=== PATIENT | male | born 1980 | race Two or more races ===

== ENCOUNTER 2020-03-17 23:00 | Emergency (ER) | payer OTHER, SELFPAY ==
[2020-03-17 23:01] VITALS: BP 163/111; PULSE 86; RESP 17; TEMP 36.4; O2SAT 100
--- NOTE | 2020-03-17 23:17 | ED.EYEPROB ---
HPI - Eye Problem General Chief complaint: Eye Problems Stated complaint: RIGHT EYE COMPLAINT Time Seen by Provider: 03/17/20 23:04 History of Present Illness HPI Narrative: Patient is a 39-year-old male who presents ER with right eye pain. Patient reports he was climbing a tree did go bow hunting when he felt something fall into his eye. He slowly developed discomfort over the rest of the day. Tonight it became very severe where he felt like he needed to come be evaluated. Reports his eyes red. He has a sensation that something may be stuck under his upper eyelid. Has blurring of the vision. Tried some pinkeye medication with no relief. Related Data Allergies Allergy/AdvReac Type Severity Reaction Status Date / Time NKDA Allergy Mild Unknown Uncoded 03/17/20 23:01 Review of Systems Eyes: Eyes: Reports change in vision, Denies eye discharge, Denies floaters, Reports irritation and Reports photophobia PMFSH Past Medical History Medical History (Updated 03/17/20 @ 23:22 by Oswaldo Mitchell MD) Healthy adult male Surgical History Surgical History (Updated 03/17/20 @ 23:19 by Oswaldo Mitchell MD) No history of previous surgery Family History Family History (Updated 05/08/16 @ 10:16 by DOCTOR UNKNOWN) Mother Family history of diabetes mellitus in first degree relative Family history of type 2 diabetes mellitus Grandparent Family history of type 2 diabetes mellitus Social History Social History Smoking status: Light tobacco smoker Smoking end date: 06/17/11 Alcohol intake: current Gender identity (if verbalized by the patient): Male Exam Narrative: Exam Narrative: GENERAL: Well-appearing, well-nourished, and in no acute distress. HEAD: Normocephalic, atraumatic. EYES: PERRL and EOMI. right eye with scleral injection. When viewed with magnification fluorescein staining wears a corneal abrasion over the mid to lower aspect of the cornea at the 7 o'clock position. The upper and lower lids of the right eye are edematous. No foreign body did divide with lid eversion. NEURO: Alert and oriented x3. PSYCH: Normal mood and affect. Course Vital Signs Vital signs: Vital Signs Temperature 97.6 F 03/17/20 23:01 Pulse Rate 86 03/17/20 23:01 Respiratory Rate 17 03/17/20 23:01 Blood Pressure 163/111 H 03/17/20 23:01 Pulse Oximetry 100 03/17/20 23:01 Temperature 97.6 F 03/17/20 23: Pulse Rate 86 03/17/20 23: Respiratory Rate 17 03/17/20 23:01 Blood Pressure 163/111 H 03/17/20 23:01 Pulse Oximetry 100 03/17/20 23:01 Discharge Plan Discharge Clinical Impression: Corneal abrasion Patient Disposition: Home, Self-Care Condition: Stable Instructions: Corneal Abrasion (ED) Additional Instructions: Return the ER if you have worsening pain in your eye, you cannot see, you have additional concerns. It would be neely to follow-up with an eye doctor/duty engineer for further evaluation. Prescriptions: New erythromycin 5 mg/gram (0.5 %) ointment 1 applic RIGHT EYE ONCE Qty: 3.5 RF: 0 hydrocodone-acetaminophen 5-325 mg tablet 1 tablet PO Q6H PRN (Reason: pain) Qty: 10 RF: 0 Follow-up/Referrals: Bruno Trent MD [Primary Care Provider] - Stand Alone Forms: Work/School Release IP
[2020-03-17] MEDS: HYDROcodone/acetaminophen (*CRX) 5-325 MG TABLET 1 TAB PO (23:29)
--- NOTE | 2020-03-17 23:31 | PC.NURSE ---
ice pack provided to pt.
[2020-03-18 00:34] VITALS: PULSE 78; RESP 18; O2SAT 99
== END 2020-03-18 00:35 | disposition home or self-care (01) ==
PROVIDERS: Emergency Provider Emergency Medicine; PCP Family Medicine
DX: S05.01XA Injury of conjunctiva and corneal abrasion without foreign body, right eye, initial encounter (principal); Z87.891 Personal history of nicotine dependence; W22.8XXA Striking against or struck by other objects, initial encounter
CPT/HCPCS: 99283; A9270

== ENCOUNTER → 2020-09-29 07:05 | Outpatient (CLI) | payer OTHER, SELFPAY ==
[2020-09-29 17:41] LABS: SARS-CoV-2 RNA PCR Negative
== END ==
PROVIDERS: PCP Family Medicine; Visit Provider Physician Assistant Medical
DX: Z20.822 Contact with and (suspected) exposure to COVID-19 (principal); R09.89 Other specified symptoms and signs involving the circulatory and respiratory systems
CPT/HCPCS: C9803; U0003; U0005

== ENCOUNTER → 2021-01-23 08:37 | Outpatient (CLI) | payer OTHER, SELFPAY ==
[2021-01-24 17:39] LABS: SARS-CoV-2 RNA PCR Negative
== END ==
PROVIDERS: PCP Family Medicine; Visit Provider Internal Medicine
DX: R68.89 Other general symptoms and signs (principal); Z20.822 Contact with and (suspected) exposure to COVID-19
CPT/HCPCS: C9803; U0003; U0005

== ENCOUNTER 2022-06-28 16:41 | Outpatient (CLI) | payer OTHER, SELFPAY ==
--- NOTE | ~2022-06-28 | XR_ITS ---
XR shoulder RT min 2V DATE: 06/28/2022 16:55 INDICATION: Right shoulder pain TECHNIQUE: 4 views COMPARISON: 02/03/2015 right shoulder FINDINGS: No fracture or dislocation, periosteal reaction or bone destruction or abnormal soft tissue calcification. IMPRESSION: Negative Reviewed, dictated and finalized at location A. 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
== END 2022-06-28 16:42 ==
LOC: MICIMG 16:43
PROVIDERS: PCP Nurse Practitioner Family; Visit Provider Nurse Practitioner Family
DX: M25.519 Pain in unspecified shoulder (principal)
CPT/HCPCS: 73030

== ENCOUNTER 2022-07-26 16:40 | Outpatient (CLI) | payer OTHER, SELFPAY ==
--- NOTE | 2022-08-18 20:31 | WPDHOMESLEEP ---
Sleep Study - Home Unattended Date of Study: 07/26/22 Ordering Provider: Bruno Trent MD Interpreting Provider: Dinorah Lewis, DO Home Sleep Study Type: Watch PAT Height: 1.78 m Weight: 90.718 kg Body Mass Index: 28.7 Neck Circumference (inches): 16 [place]: 12 Reason for Sleep Study Multiple nighttime awakenings, daytime hypersomnia Sleep History The patient is a 41-year-old male with hypertension and tobacco use I had a sleep study ordered by his primary care for evaluation of sleep apnea. The patient rarely awakens from sleep short of breath. He occasionally awakens at night with heartburn, belching or cough. He constantly snores loudly enough that others complain. He occasionally has trouble sleeping when he has a cold. He rarely wakes up gasping for air throughout the night. He frequently has breathing problems at night observed by himself or others. He frequently sweats excessively at night. He denies having heart palpitations or irregular heartbeats during the night. He frequently falls asleep during the day but rarely falls asleep while driving. He denies sleep paralysis and cataplexy. He frequently has trouble at school or work due to sleepiness. He occasionally experiences vivid dreamlike scenes upon awakening or falling asleep. He denies feeling afraid of going to sleep. He rarely has nightmares. He occasionally remembers his dreams. He constantly has thoughts racing through his mind. He occasionally feels sad or depressed. He denies having anxiety. He rarely has muscular tension. He rarely notices parts of his body jerk. He denies kicking during the night. He denies having crawling and aching feelings in his legs and denies having leg pain during the night. He denies grinding his teeth during sleep and denies awakening with morning jaw pain. He denies being bothered by pain during the day and denies being awakened by pain during the night. He denies waking up feeling stiff. He denies waking up with sore or achy muscles. He denies waking up with pain neck, spine or other joints. He goes to bed at midnight on both weekdays and weekends. It takes him 3 or more hours to fall asleep. He wakes up 3-4 times throughout the night for unknown reasons. He will stay in bed for 30 minutes in the answer watch you too. It takes him over an hour to fall back asleep. He wakes up at 4:30 a.m. on weekdays and 6:00 a.m. on weekends. He typically gets 4-5 hours of sleep per night. He will stay in bed an hour after waking weekends. He currently lives with his and 2 children. He does work rotating shifts. He does not consume any caffeinated beverages within 2 hours of bedtime. He does not engage in physical exercise before bedtime. He will watch television before falling asleep. He will take naps in the afternoon or the evening and they are refreshing. He does not consume any caffeinated beverages throughout the day. He smokes half a pack of cigarettes per day. Drinks 1 alcoholic beverage every other day. He denies recreational drug use. [facility] Past Medical History Medical History Healthy adult male Pilar cyst Surgical History Surgical History No history of previous surgery Family History Family History Mother Family history of diabetes mellitus in first degree relative Family history of type 2 diabetes mellitus Cerebrovascular accident Grandparent Family history of type 2 diabetes mellitus Social History Social History Smoking status: Current every day smoker Smoking end date: 06/17/11 Alcohol intake: current Gender identity (if verbalized by the patient): Male Medications Home Medications Medication Instructions Recorded Confirmed Type lisino
[2022-08-18 20:39] VITALS: BMI 28.7
== END 2022-07-30 10:26 | disposition home or self-care (01) ==
LOC: ANHCSM 16:41
PROVIDERS: PCP Nurse Practitioner Family; Visit Provider Family Medicine
DX: G47.33 Obstructive sleep apnea (adult) (pediatric) (principal); G47.10 Hypersomnia, unspecified
CPT/HCPCS: 95800

== ENCOUNTER 2023-12-24 07:23 | Emergency (ER) | payer OTHER, SELFPAY ==
--- NOTE | ~2023-12-24 | XR_ITS ---
Right ankle Technique: AP, oblique, and lateral views were obtained. Clinical History: Injury, swelling Findings: No acute fracture or dislocation is seen. Osseous alignment is anatomic. Ankle mortise and other visualized joint spaces are preserved. Lateral soft tissue swelling noted. Impression: No fracture or dislocation. Lateral soft tissue swelling, compatible with sprain. Reviewed, dictated and finalized at location . Impression: No fracture or dislocation. Lateral soft tissue swelling, compatible with sprain.
[2023-12-24 07:29] VITALS: BP 158/83; PULSE 120; RESP 20; TEMP 36.6; O2SAT 100
--- NOTE | 2023-12-24 08:24 | ED.LOWEXIN ---
HPI - Extremity Injury (Lower) General Chief Complaint: Extremity Injury, Lower Stated Complaint: R ANKLE INJURY Time Seen by Provider: 12/24/23 07:55 History of Present Illness HPI Narrative: This is a 43-year-old male, with no significant past medical history, presents to the emergency department complaining of right ankle pain. The patient states 4 days ago, he was walking, when he misstepped into a ditch, causing forced inversion of the right ankle resulting in 6/10 dull pain. The ankle has since swollen and B, very tender to touch at the lateral aspect. He states he is able to ambulate and has had some improvement with rest, icing, elevation and NSAIDs. He denies injury elsewhere, including head injury or loss of consciousness. He has no other complaints at this time. Related Data Allergies Allergy/AdvReac Type Severity Reaction Status Date / Time No Known Allergies Allergy Verified 12/24/23 07:32 Review of Systems Review of Systems: All systems reviewed & are unremarkable except as noted in HPI and below PMFSH Past Medical History Medical History BMI 29.0-29.9,adult Healthy adult male Pilar cyst Snoring Surgical History Surgical History No history of previous surgery Family History Family History Mother Family history of diabetes mellitus in first degree relative Family history of type 2 diabetes mellitus Cerebrovascular accident Grandparent Family history of type 2 diabetes mellitus Father No problems noted. Sibling No problems noted. Social History Social History Smoking status: Current every day smoker Tobacco type: e-cigarettes/vaping Alcohol intake: current Substance use: never Substance use type: does not use Lack of Transportation: No Lack of Food: Never True Current Housing: I Have Housing Concerned About Future Housing: No Difficulty Paying Gas/Electric Bills: No Difficulty Paying for Meds: No Currently Unemployed: No Education: Trade/Vocational Certificate Difficulty w/ Childcare or Family Care: No Living arrangements: with family Occupation/Education: occupation Additional occupation/education comments: [employer] Gender identity (if verbalized by the patient): Male Exam Narrative: GENERAL: Well-developed, well-nourished, and in no acute distress. HEAD: Normocephalic, atraumatic. EYES: PERRLA and EOMI. CHEST: Clear to auscultation. No respiratory distress. No wheezes rales or rhonchi HEART: Regular rate and rhythm. No murmur heard. Normal peripheral pulses. EXTREMITIES: Swelling and ecchymosis noted of the right ankle, primarily at the lateral malleolus as well as some ecchymosis noted under the medial malleolus. Lateral malleolus is tender to light palpation without step-off or crepitus. There is no noted tenderness to palpation over the medial malleolus. Range of motion of the right ankle limited by pain. Otherwise normal range of motion of all other extremities. No edema. SKIN: Warm, dry, no rash. NEURO: Alert and oriented x3. No focal deficit. Moving all 4 limbs spontaneously PSYCH: Normal mood and affect. Course Course Emergency Course: 08:27 - X-ray of the right ankle not concerning for fracture or dislocation. I suspect a significant strain as the cause of the patient's pain. Will discharge with recommendations for rice therapy and primary care follow-up. I discussed the findings and recommendations with the patient. Discussed return and emergency precautions including signs/symptoms of septic arthritis and neurovascular compromise. The patient voiced understanding and agreement with the plan. All questions answered to his satisfaction. Vital Signs Vital signs: Vital Signs Temperature 97.8 F
== END 2023-12-24 09:46 | disposition home or self-care (01) ==
LOC: ANHED 09:25
PROVIDERS: Emergency Provider Preventive Medicine Aerospace Medicine; PCP Family Medicine
DX: S93.401A Sprain of unspecified ligament of right ankle, initial encounter (principal); F17.290 Nicotine dependence, other tobacco product, uncomplicated; X50.9XXA Other and unspecified overexertion or strenuous movements or postures, initial encounter; Z79.899 Other long term (current) drug therapy
CPT/HCPCS: 73610; 99283